=== PATIENT | male | born 1955 | race Caucasian/White ===

== ENCOUNTER 2022-11-01 07:35 | Observation (INO) ==
--- NOTE | 2022-10-05 09:41 | PAT Medication Instructions ---
Medication Instructions Date of Service October 05, 2022 Home Medications benazepril 10 mg tablet 10 mg PO HS cyclobenzaprine 10 mg tablet 10 mg PO HS escitalopram oxalate 10 mg tablet (Lexapro) 10 mg PO HS hydrocodone 5 mg-acetaminophen 325 mg tablet 1 tab PO Q8H PRN meloxicam 7.5 mg tablet 7.5 mg PO HS ASK your surgeon for instructions meloxicam 7.5 mg tablet 7.5 mg PO HS Take morning of surgery With a small sip of water, OTHERWISE NOTHING TO EAT OR DRINK AFTER MIDNIGHT: hydrocodone 5 mg-acetaminophen 325 mg tablet 1 tab PO Q8H PRN(if needed) Take evening before surgery benazepril 10 mg tablet 10 mg PO HS cyclobenzaprine 10 mg tablet 10 mg PO HS escitalopram oxalate 10 mg tablet (Lexapro) 10 mg PO HS hydrocodone 5 mg-acetaminophen 325 mg tablet 1 tab PO Q8H PRN(if needed) Other Notes If you have any questions please call us at [phone] or [phone] or [phone] or [phone]
--- NOTE | 2022-10-12 11:00 | Anesthesiology Consultation ---
Date of Service October 12, 2022 Assessment & Plan (1) Encounter for pre-operative examination: Chart Review Chart Review: Acceptable Risk for Surgery (pending PCP clearance and response to anemia ) and Patient seen in Pre Admission Testing - Awaiting PCP clearance appt 10/18/22 (please send optimization form re: anemia as well as preop testing) Pt currently scheduled as 23 hours observation. If surgeon decides to change patient to [facility], patient would be acceptable risk for TSA, pending patient is motivated, has good support and surgeon's office completes [facility] preop requirements. Per PAT appt on 10/12/22, patient denies any recent travel or large group activities. Pt is vaccinated for Covid. Will leave to surgeon's discretion if preop Covid testing needed. Educated on importance of using Covid precautions one week prior to surgery Teaching & Discussion Pre-Anesthesia Teaching/Discussion Notes: Instructed NPO after midnight before surgery,except medications with 15 cc of water. Medication instructions provided according to the PAT guidelines. History Surgery Operation Date: 11/01/22 07:15 Proposed Procedures p Right Reverse Total Shoulder Arthroplasty - Dash Swanson MD Height/Weight Height: 5 ft 9 in Weight: 74.8 kg Allergies Allergy/AdvReac Type Severity Reaction Status Date / Time No Known Allergies Allergy Verified 10/05/22 08:32 Medications Home Medications Medication Instructions Recorded Confirmed Last Taken benazepril 10 mg tablet 10 mg PO HS 10/05/22 10/05/22 Unknown cyclobenzaprine 10 mg tablet 10 mg PO HS 10/05/22 10/05/22 Unknown escitalopram oxalate 10 mg tablet 10 mg PO HS 10/05/22 10/05/22 Unknown (Lexapro) hydrocodone 5 mg-acetaminophen 325 1 tab PO Q8H PRN Pain 10/05/22 10/05/22 Unknown mg tablet meloxicam 7.5 mg tablet 7.5 mg PO HS 10/05/22 10/05/22 Unknown Past Medical History Medical History Chronic back pain Depression History of COVID-2021--mild symptoms, no symptoms now History of kidney stones No recent issues Hypertension Melanoma s/p excision left thumb (partial ambutation) DIMITRIOS (obstructive sleep apnea) Cannot tolerate device Osteoarthritis Scoliosis Exercise / Class Metabolic Activity II 4-5 Yardwork/Stairs/Walk up hill (one flight of stairs- no chest pain or SOB ) Past Family History Family History Other No family history of adverse response to anesthesia Past Surgical History Surgical History 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 History of colonoscopy History of hernia surgery x2 History of incision and drainage left knee History of repair of right rotator cuff x4 History of surgery per pt had a spider bite on middle finger on left hand and had to have surgery History of toe surgery left foot History of tooth extraction S/P cystoscopy with ureteral stent placement Past Anesthesia History No Hx of Anesthesia Complications and No Family Hx of Anesthesia Complications History of PONV No Hx of PONV and No Hx of Motion Sickness Social History Smoking Status: Never smoker Do You Dip or Chew Tobacco: No Hx Alcohol Use: Yes alcohol intake frequency: holidays/special occasions only Hx Substance Use: No substance use type: does not use Review of Systems Patient denies chest pain, shortness of breath, dyspnea on exertion, reflux, cough, wheezing, palpitations. No hx of seizures, stroke, CA. No hx of blood clots or blood transfusions Physical Exam Vital Signs VITALS BP 155/79 P 75 TEMP 98.2 SP02 97% RESP 16 Constitutional no acute distress ENMT Mouth: no TMJ clicking Thyromental Distance: > or= 3.5 Finger Breadths (4.0) Mallampati Class: II Neck neck extension not limited Respiratory normal respiratory effort; no respiratory distress Auscultation: lungs clear to auscultation bilaterally; no wheezes Cardiovascular Rate/Rhythm: regular rate and regular rhythm Heart Sounds: no murmur Vessels: no carotid bruit Musculoskeletal Spine: no pain with cervical ROM Extremities: extremities normal to inspection Psychiatric Orientation: alert Lab Results Anesthesia Preop Results Results Anesthesia Widget: WBC 6.19 K/ul (4.8-10.8) 10/12/22 Hgb 11.9 g/dl (14.0-18.0) L 10/12/22 Hct 35.9 % (42.0-52.0) L 10/12/22 Plt 248 K/uL (130-400) 10/12/22 Na 136 mmol/L (136-145) 10/12/22 K 4.9 mmol/L (3.5-5.1) 10/12/22 Cl 106 mmol/L (98-107) 10/12/22 CO2 25 mmol/L (21-32) 10/12/22 BUN 20 mg/dl (6-23) 10/12/22 Creat 0.83 mg/dl (0.6-1.4) 10/12/22 Glucose Level 96 mg/dl (70-99(Fasting)) 10/12/22 PT 10.4 Seconds (9.0-12.0) 10/12/22 PTT 26.5 Seconds (21.0-31.0) 10/12/22 INR 0.9 (0.9-1.1) 10/12/22 Urine Color Yellow 10/12/22 Urine Appearance Clear (Clear) 10/12/22 Urine pH 6.0 (4.5-7.5) 10/12/22 Urine Specific [place] 1.017 (1.000-1.030) 10/12/22 Urine Protein Negative (Negative) 10/12/22 Urine Glucose (UA) Negative (Negative) 10/12/22 Urine Ketones Negative (Negative) 10/12/22 Urine Blood Negative (Negative) 10/12/22 Urine Nitrite Negative (Negative) 10/12/22 Urine Bilirubin Negative (Negative) 10/12/22 Urine Urobilinogen Negative (Negative) 10/12/22 Urine Leukocyte Esterase Negative (Negative) 10/12/22 Blood Type O Positive 10/12/22 Antibody Screen NEGATIVE 10/12/22 Testing Laboratory Results Mild anemia- preop testing faxed to PCP office for upcoming clearance appt Electrocardiogram Date: 10/12/22 Findings: + NSR @ (70bpm) Possible left atrial enlargement Incomplete RBBB When compared to EKG from October 28, 2019- no significant change was found Chest X-Ray Date: 10/12/22 FINDINGS: PA and lateral chest radiographs are obtained. No prior studies are available for comparison at the time of dictation. The cardiomediastinal silhouette is top normal for projection. There is bibasilar scarring/atelectasis. No airspace consolidation or pleural effusion is identified. There is no pneumothorax. The skeletal structures are osteopenic. The bony thorax appears intact. Degenerative change and scoliosis is seen in the spine. IMPRESSION: No active disease in the chest. COVID-19 Risk Screen Screening Information COVID-19 Screen Date: 10/12/22 Exposure 21 Days Family/Household +COVID Last 21 Days: No Exposure 10 Days Any COVID Exposure Last 10 Days: No Symptoms Last 10 Days Experienced COVID Sx Last 10 Days: No + COVID 0-90 Days COVID + in Last 0-90 Days: No Risk Plan COVID Risk Plan: No Risk Identified Patient Education COVID Preop Screening Education Complete: Yes
--- NOTE | 2022-10-31 08:41 | History & Physical Report ---
Date of Service October 31, 2022 Assessment & Plan (1) Rotator cuff arthropathy of right shoulder: Plan: Treatment options discussed with patient. He has failed conservative measures. He would like to proceed with surgical intervention. Risks, benefits and alternatives to surgery including but not limited to infection, DVT, pain, stiffness, need for revision surgery, damage to blood vessels, damage to nerves, PE, , were discussed with the patient and they wish to proceed. Plan on right reverse total shoulder arthroplasty scheduled for [facility] on 11/01/[address] Swanson. All questions answered. Patient will follow up post op. History of Present Illness Chief Complaint: Right shoulder pain Primary Care Provider: Corwin Martinez 67yo male with no significant PMHx presents with ongoing right shoulder pain. He has failed conservative measures. Pain interfering with his daily activity. He would like to proceed with surgical intervention. Has had prior rotator cuff surgery. Patient denies headaches, sweats, fevers, chills, double vision, blurred vision, cough, sore throat, dysphagia, chest pain, sob, wheezing, n/v/d/c, numbness, tingling, fatigue, urinary symptoms, mood disorders. ROS positive for right shoulder pain and stiffness. Allergies Allergy/AdvReac Type Severity Reaction Status Date / Time No Known Allergies Allergy Verified 10/05/22 08:32 Home Medications Medication Instructions Recorded Confirmed Type benazepril 10 mg tablet 10 mg PO HS 10/05/22 10/05/22 History cyclobenzaprine 10 mg tablet 10 mg PO HS 10/05/22 10/05/22 History escitalopram oxalate 10 mg tablet 10 mg PO HS 10/05/22 10/05/22 History (Lexapro) hydrocodone 5 mg-acetaminophen 325 1 tab PO Q8H PRN Pain 10/05/22 10/05/22 History mg tablet meloxicam 7.5 mg tablet 7.5 mg PO HS 10/05/22 10/05/22 History Past Med/Surg History Medical History Chronic back pain Depression History of COVID-2021--mild symptoms, no symptoms now History of kidney stones No recent issues Hypertension Melanoma s/p excision left thumb (partial ambutation) DIMITRIOS (obstructive sleep apnea) Cannot tolerate device Osteoarthritis Scoliosis Surgical History 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 History of colonoscopy History of hernia surgery x2 History of incision and drainage left knee History of repair of right rotator cuff x4 History of surgery per pt had a spider bite on middle finger on left hand and had to have surgery History of toe surgery left foot History of tooth extraction S/P cystoscopy with ureteral stent placement Family History Other No family history of adverse response to anesthesia Social History Smoking Status: Never smoker Second Hand Exposure: No; Do You Dip or Chew Tobacco: No; Tobacco Cessation Education Requested by Patient: No Hx Alcohol Use: Yes Hx Substance Use: No Preferred Language: Palauan Communication Ability: Effective 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 Beliefs That Will Affect Care: None Current Living Situation: Spouse Other Information That Helps Us Care for You: No Feels Safe at Home: Yes Safety Concerns: Feels Safe At This Time Assistive Devices: None Review of Systems All systems reviewed & are unremarkable except as noted in HPI & below Physical Exam Constitutional: well developed and well nourished; no acute distress Eyes: PERRL, conjunctivae normal, anicteric sclerae ENMT: external ear and nose normal, oropharynx normal Neck: trachea midline, no thyromegaly Respiratory: normal respiratory effort, lungs clear to auscultation Cardiovascular: RRR, no murmur, no edema Musculoskeletal: Right shoulder: crepitation present. Positive impingement signs. FF to 40 degrees, abduction to 40 degrees, ER to 90 degrees. Strength decreased with 3+/5 ER, 5-/5 IR, 2+/5 abduction and FF. Skin: no rashes, warm and dry Neurologic: patellar DTR's 2+ bilat, sensation intact Psychiatric: A+Ox3, euthymic affect Results & Data Diagnostic Findings Right shoulder radiographs demonstrate proximal migration of humeral head. 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 Rotator cuff arthropathy. MRI demonstrates failure of rotator cuff repair with retraction.
[~2022-11-01 07:35] MED LIST: ACETAMINOPHEN 500 MG TAB PO SCH; BUPIVACAINE 0.5 % 5 MG/1 ML PF 10ML VIAL ONE; CeleBREX 200 MG CAP PO SCH; FAMOTIDINE 20 MG TAB PO SCH; GABAPENTIN 300 MG CAP PO SCH; LR 15ML/HR IV SCH; METOCLOPRAMIDE HCL 10 MG TABLET PO SCH; TRANEXAMIC ACID 1,000 MG **IV Intra-op IV SCH; TRANEXAMIC ACID 1,000 MG **IV Pre-op IV SCH; ceFAZolin 2000MG 2,000 MG/15 ML SYR IV SCH; dexAMETHasone 4 MG TAB PO SCH
--- NOTE | 2022-11-01 07:43 | History & Physical Bridge Note ---
Date of Service November 01, 2022 History & Physical Bridge Note I have examined the patient, reviewed the History & Physical and in the interval since the performance of the History & Physical I have noted the following changes of clinical significance: no changes noted
[2022-11-01] MEDS ORDERED: LIDOCAINE 2% 2 ML VIAL/AMP(20MG/ML) INFIL ONE (07:45)
[2022-11-01] MEDS ORDERED: PROPOFOL IV EMULSION 10 MG/ML 20 ML VIAL IV ONE (07:45)
[2022-11-01] MEDS ORDERED: ROCURONIUM BROMIDE 10 MG/ML 5 ML VIAL IV ONE (07:45)
[2022-11-01] MEDS ORDERED: ONDANSETRON INJ 2 MG/ML 2 ML VIAL ONE (07:45)
[2022-11-01] MEDS ORDERED: DEXAMETHASONE SOD INJ 4 MG/ML VIAL ONE (07:45)
[2022-11-01] MEDS ORDERED: fentaNYL citrate PF 100 MCG/2 ML VIAL ONE (07:46)
[2022-11-01] MEDS ORDERED: MIDAZOLAM HCL 1 MG/ML 2ML VIAL ONE (07:46)
[2022-11-01] MEDS ORDERED: ATROPINE SULFATE 0.1 MG/ML 10ML SYR IV PRN (08:25)
[2022-11-01] MEDS ORDERED: ONDANSETRON INJ 2 MG/ML 2 ML VIAL IV PRN ×2 (08:25→14:34)
[2022-11-01] MEDS ORDERED: fentaNYL citrate PF 100 MCG/2 ML VIAL IV PRN (08:25)
[2022-11-01] MEDS ORDERED: KETOROLAC TROMETHAMINE 15 MG/ML VIAL IV PRN (08:29)
[2022-11-01] MEDS ORDERED: ePHEDrine sulfate 50 MG/ML SYR ONE (10:01)
[2022-11-01] MEDS ORDERED: PHENYLEPHRINE 100MCG/ML 5ML SYR ONE (12:00)
[2022-11-01] MEDS ORDERED: NEOSTIGMINE METHYLSULFATE 1 MG/ML 10ML VIAL ONE (12:24)
[2022-11-01] MEDS ORDERED: GLYCOPYRROLATE 0.2 MG/ML VIAL ONE (12:24)
--- NOTE | 2022-11-01 12:44 | Operative Report ---
Post Operative Report Pre & Post Diagnosis Operation Date: 11/01/22 09:25 Pre-Op Diagnosis: Right Shoulder Rotator cuff arthropathy failed rotator cuff repair Post-Op Diagnosis: Right Shoulder rotator cuff arthropathy failed rotator cuff repair, biceps tendinopathy, loose body biceps tendon sheath with tenosynovitis I identified the patient and participated in the time-out.: Yes Procedure Operation Date: 11/01/22 09:25 Actual Procedures p Right Reverse Total Shoulder Arthroplasty(Right), biceps tenodesis, biceps tendon tenosynovectomy with removal loose body, Excision hardware( suture anchors) - Dash Swanson MD Surgeon Dash Swanson MD Item Processing Clerk Forrest MOYER Estimated Blood Loss 50 Findings Consistent with Post-Op Diagnosis Specimens humeral head Drains 2 Hemovac Anesthesia Type General Regional Complications none Disposition Disposition: Recovery Room Indications 67-year-old male with failed rotator cuff repair right shoulder chronic weakness and pain and rotator cuff arthropathy with pseudo paralytic shoulder inability to raise arm overhead but has functional deltoid when he posts his arm overhead. Description of Procedure The patient was taken to the operating room and anesthetized under regional block and general anesthetic. The patient was positioned on the operating table in a 30 beach chair position with a towel roll under the medial border of the Right scapula. The arm was draped free to be able to manipulate the shoulder as needed. The right upper extremity was prepped and draped in usual sterile fashion. Exam demonstrated good passive range of motion with 180 degrees passive flexion and 90 degrees of external rotation in the abducted position. He had a chronic deformity of his pectoralis muscle and old scar along the pectoralis muscle Right chest wall area. An anterior deltopectoral approach was performed. A longitudinal incision was made in the deltopectoral interval. The skin was incised sharply. Subcutaneous flaps were elevated off the fascia. The cephalic vein was absent. The deltopectoral interval was bluntly dissected down to the clavipectoral fascia and conjoined tendon. The clavipectoral fascia was scarred and there was scarred bursal tissue over the rotator cuff from prior surgery. There were multiple vessels that required being tied off with silk ties and divided. The clavipectoral fascia was divided at the lateral margin of the conjoined tendon and extended up to the CA ligament Which was released for exposure. The following findings were noted: there was partial tearing of the upper and inner aspect of the subscapularis tendon. The biceps tendon sheath had large area with synovitis with a loose body within it that was removed. The proximal biceps tendon was widened with tendinopathy intra-articularly. The superior rotator cuff was torn with failed rotator cuff repair with some thin scar tissue and stretched out suture material from the previous anchors which were still intact. The suture material was removed and all scarred bursa was removed. . The upper centimeter of the pectoralis was released for inferior exposure. A self-retaining retractor was placed. The biceps tendon was tenodesed to the pectoralis tendon with #2 FiberWire. The proximal biceps was resected. The subscapular muscle fibers were split longitudinally at the level of the circumflex vessels. The circumflex vessels were identified and tied off with silk ties and divided laterally. A Kitner elevator was used to free up the in ferior fibers of the subscapularis off of the capsule. The axillary nerve was identified with a tug test and protected with a blunt Maryanne retractor between the nerve and the capsule. The subscapularis tendon was then taken down off of the lesser tuberosity subperiosteally, a Vicryl traction suture was placed and a subperiosteal dissection was performed along the neck of the humerus as the arm was gradually externally rotated exposing the humeral head. The humeral head findings demonstrated Arthritic changes of the humeral head with inferior osteophytes extending from anterior to posterior. retractors were readjusted and the inferior osteophytes were all resected using an artist chisel. A Mcneil elevator was used to assist in releasing the capsule of the neck of the humerus. The capsule was divided with Dennis scissors down to the glenoid released off the anterior glenoid and the rotator interval was released to meet the capsular release and a 360 release of the subscapularis was accomplished. Some of the scarred torn subscapularis fibers on the inner surface were removed with a sharp scalpel. There was satisfactory amount of thickness and subscapularis tendon for repair at the end of the procedure. A Fukuda retractor was placed into the joint retracting the humeral head posterior. Glenoid findings demonstrated Some arthritic changes of the articular cartilage but still intact articular cartilage on the glenoid and chronic degeneration of the labrum and anterior glenoid spur. The labrum and biceps tendon was resected. an anterior-inferior and posterior inferior capsular release were performed with electrocautery and a Mcneil elevator on bone with the axillary nerve protected inferiorly by the retractor. Attention was then taken to the humeral preparation. The cutting guide was placed into the humeral head. It was positioned at 20 of retroversion. Oscillating saw was used to resect the humeral head giving the cut above the level of the posterior rotator cuff insertion site. the old suture anchors had to be removed using a rongeur as they were impeding the course of placing the stem. 2 peek suture anchors were removed. The humerus was then prepared for the stem. I used the ascend flex stem from [employer]. The sizing broaches were used followed by trial broaches up to a size 6B long which had the appropriate fit and fill. The appropriate sized cut protector was placed. The humerus was then retracted posterior to the glenoid. The glenoid was sized for a 25 mm baseplate. The guide for the baseplate was positioned in a 10 inferior tilt and the central drill hole was made. The reamer for the 25 mm baseplate was used. The central drill was widened for the peg. The aequalis 25 mm baseplate with standard post was impacted into position. The base plate was transfixed with superior and inferior locking screws and anterior and posterior compression screws with stable fixation. The fan reamer was used for the 36 millimeter glenoid sphere. After irrigation the 36 mm glenoid sphere with a +2 inferior offset was impacted onto the baseplate and the security screw was tightened. Attention was taken back to the humerus. The cut protector was removed and the plus or high offset humeral tray trial was assembled to the trial stem rotated appropriately to get bony coverage and then screwed in position. A trial reduction was performed. A +6, 36 reversed trial insert demonstrated good stability and no shuck. The trials were removed. 3 drill holes are made into the harder bone in the bicipital groove area and 3 #5 FiberWire sutures were placed transosseously. The canal was irrigated with saline solution pulsatile lavage. The final component was assembled. The final component was 6B long ascend flex PTC stem assembled to the plus or high offset tray with a +6, 36 mm reversed polyethylene insert. This was then impacted into the humerus with a tight press-fit. It was reduced to the glenoid sphere. Stability was verified. Subscapularis was repaired with the #5 FiberWire sutures using Urban-Mitul suture technique. Lateral row soft tissue repair was performed with #2 FiberWire [id number] sutures. The pectoralis was repaired with #2 FiberWire [id number] sutures reinforcing the biceps tendon tenodesis. The arm was taken through a range of motion which demonstrated 160 degrees forward flexion 115 degrees of abduction 60 degrees external rotation without tension on repair . The implant was stable through the range of motion tested. The wound was copiously irrigated. 2 Hemovac drains were placed. The deltopectoral interval was closed with [id number] #1 Vicryl sutures. The subcutaneous tissues were closed with 2-0 Vicryl sutures. The skin was closed with prakash Sterile dressings were applied and a shoulder immobilizer Forrest MOYER, My physician assistant program director acted as certified surgical first assistant throughout the procedure .He performed functions including patient positioning, arm posit ioning, prepping and draping, soft tissue retraction, instrument management, suture management and performed the subcutaneous and skin closure and will participate in the postoperative care of the patient. I attest to the content of the Intraoperative Record and any orders documented therein. Any exceptions are noted below.
--- NOTE | 2022-11-01 13:04 | XRay Report ---
XR shoulder RT min 2V routine CLINICAL HISTORY: Post shoulder surgery COMPARISON STUDY: None. FINDINGS: 2 views of the right shoulder demonstrate a reverse right total shoulder arthroplasty. The hardware appears intact. No acute fracture or dislocation. Skin prakash and surgical drains are in pl [place]. Soft tissue gas within the right shoulder likely due to the recent postoperative change. Scolios is of the thoracic spine. IMPRESSION: Status post reverse right total shoulder arthroplasty. No evidence for hardware complica tion. ACT 112: Negative or not required by law. Electronically signed by: Pawan Vázquez M.D. 11/01/2022 1:03 PM
--- NOTE | 2022-11-01 13:45 | Anesthesiology Progress Note ---
Date of Service November 01, 2022 Anesthesia Post Procedure Vital Signs Vital Signs: Temp Pulse Resp BP Pulse Ox O2 Del Method O2 Flow Rate 11/01/22 13:30 82 18 120/71 97 Nasal Cannula 2 11/01/22 13:20 36.5 C 73 16 112/68 98 Nasal Cannula 2 11/01/22 13:10 72 18 110/63 96 Room Air 11/01/22 13:00 79 18 120/70 97 Room Air 11/01/22 12:50 79 20 109/68 99 Oxymask 6 11/01/22 12:40 70 16 119/66 100 Oxymask 6 11/01/22 12:37 36.0 C L 77 16 120/74 100 Oxymask 6 11/01/22 07:55 36.9 C 78 20 136/91 97 Room Air Pain Intensity Right Shoulder: Pain Intensity: 1 Transfer of Care Handoff Completed per policy Notes Mental Status: alert / awake / arousable Patient Amnestic to Procedure: Yes Nausea / Vomiting: adequately controlled Pain: adequately controlled Airway Patency, RR, SpO2: stable & adequate BP & HR: stable & adequate Hydration State: stable & adequate Anesthetic Complications: no major complications apparent
[2022-11-01] MEDS ORDERED: diphenhydrAMINE 50 MG/ML VIAL IV PRN (14:34)
[2022-11-01] MEDS ORDERED: METOCLOPRAMIDE HCL INJ 5 MG/ML 2 ML VIAL IV PRN (14:34)
[2022-11-01] MEDS ORDERED: MAGNESIUM HYDROXIDE SUSP 30 ML UDC PO PRN (14:34)
[2022-11-01] MEDS ORDERED: bisacodyL 10 MG SUPP PR PRN (14:34)
[2022-11-01] MEDS ORDERED: NALOXONE HCL 0.4 MG/1 ML VIAL/CARP IV PRN (14:34)
[2022-11-01] MEDS ORDERED: HYDROmorphone INJ 0.5 MG/0.5 ML SYR IV PRN (14:34)
[2022-11-01] MEDS: SODIUM CHLORIDE 0.9% 1000ML 1,000 ML IV SCH (14:53)
[2022-11-01] MEDS: ACETAMINOPHEN 500 MG TAB PO SCH ×2 (15:37→21:32)
[2022-11-01] MEDS: ceFAZolin 2000MG 2,000 MG/15 ML SYR IV SCH (17:51)
[2022-11-01] MEDS ORDERED: ESCITALOPRAM OXALATE 10 MG TAB PO SCH (21:00)
[2022-11-01] MEDS ORDERED: ENALAPRIL MALEATE 10 MG TAB PO SCH (21:00)
[2022-11-01] MEDS ORDERED: SENNA 8.6 MG TAB PO SCH (21:00)
[2022-11-01] MEDS: ASPIRIN 81 MG ECTAB PO SCH (21:31)
[2022-11-01] MEDS: DOCUSATE SODIUM 100 MG CAP PO SCH (21:33)
[2022-11-01] MEDS: oxyCODONE HCL IR 5 MG TAB (IMMEDIATE RELEASE) PO PRN (23:01)
[2022-11-02] MEDS: SODIUM CHLORIDE 0.9% 1000ML 1,000 ML IV SCH (00:56)
[2022-11-02] MEDS: ceFAZolin 2000MG 2,000 MG/15 ML SYR IV SCH (02:45)
[2022-11-02] MEDS: ACETAMINOPHEN 500 MG TAB PO SCH ×2 (05:11→13:41)
[2022-11-02 06:46] LABS: Basophils # (auto) 0.01 K/uL (0-0.2); Basophils % (auto) 0.1 %; Eosinophils # (auto) 0.01 K/uL (0-0.50); Eosinophils % (auto) 0.1 %; Hematocrit (blood only) 28.3 % (42.0-52.0); Hemoglobin 9.4 g/dl (14.0-18.0); Immature Granulocytes # (auto) 0.07 K/uL (0.01-0.20); Immature Granulocytes % (auto) 0.6 %; Lymphocytes # (auto) 1.07 K/uL (1.2-3.4); Lymphocytes % (auto) 9.2 %; Mean Corpuscular Hemoglobin 30.6 pg (25.0-34.0); Mean Corpuscular Hgb Conc 33.2 g/dL (32.0-36.0); Mean Corpuscular Volume 92.2 fL (80.0-100.0); Mean Platelet Volume 9.8 fL (9.4-12.4); Monocytes # (auto) 1.12 K/uL (0.11-0.59); Monocytes % (auto) 9.7 %; Neutrophils # (auto) 9.31 K/uL (1.40-6.50); Neutrophils % (auto) 80.3 %; Platelet Count 209 K/uL (130-400); RDW Coefficient of Variation 12.3 % (11.5-14.5); RDW Standard Deviation 41.2 fL (36.4-46.3); Red Blood Count 3.07 M/uL (4.70-6.10); White Blood Count 11.59 K/ul (4.8-10.8)
[2022-11-02 06:59] LABS: Calcium 7.4 mg/dl (8.6-10.3); Creatinine Clr Calc Pharmacy 75.5 ml/min; Est GFR (African American) 95.6 ml/min; Est GFR (Non-African American) 82.5 ml/min
--- NOTE | 2022-11-02 07:04 | Orthopedic Progress Note ---
Date of Service November 02, 2022 Assessment & Plan (1) Rotator cuff arthropathy of right shoulder: Plan: Postop day 1 status post right reverse total shoulder arthroplasty PT/OT protocols. Nonweightbearing right upper extremity. DVT prophylaxis-aspirin p.o. twice daily, SCDs Pain management as written DC planning-patient is planning for discharge to home. No active PT until seen back in the office. Passive exercises only Admission and Anticipated Discharge Date Admission Date: November 01, 2022 Subjective Postop day 1 Patient sitting up in bed awake and alert. No complaints this morning. Denies any shortness of breath, chest pain, lightheadedness. Pain is controlled. He states that his nerve block is still working well. Physical Exam Physical Exam: Dressings are clean, dry, and intact. Sling is in place. He continues to have fairly active nerve block. He continues to have numbness and the hand and fingers. He is able to flex the fingers at this time but has no active extension and is unable to extend his wrist. Capillary refill is less than 2 seconds. Results & Data Vital Signs (Past 12 Hours) Vital Signs Temp Pulse Resp BP Pulse Ox O2 Del Method 11/02/22 06:11 36.5 C 70 16 131/68 93 Room Air 11/02/22 02:45 36.6 C 73 14 128/74 95 Room Air 11/01/22 23:29 36.8 C 93 H 16 129/67 94 Room Air 11/01/22 19:36 37.0 C 66 16 138/78 96 Room Air Laboratory Results Laboratory Results WBC 11.59 K/ul (4.8-10.8) H 11/02/22 06:09 RBC 3.07 M/uL (4.70-6.10) L 11/02/22 06:09 Hgb 9.4 g/dl (14.0-18.0) L 11/02/22 06:09 Hct 28.3 % (42.0-52.0) L 11/02/22 06:09 MCV 92.2 fL (80.0-100.0) 11/02/22 06:09 MCH 30.6 pg (25.0-34.0) 11/02/22 06:09 MCHC 33.2 g/dL (32.0-36.0) 11/02/22 06:09 RDW Std Deviation 41.2 fL (36.4-46.3) 11/02/22 06:09 RDW Coeff of Peña 12.3 % (11.5-14.5) 11/02/22 06:09 Plt Count 209 K/uL (130-400) 11/02/22 06:09 MPV 9.8 fL (9.4-12.4) 11/02/22 06:09 Immature Gran % (Auto) 0.6 % 11/02/22 06:09 Neut % (Auto) 80.3 % 11/02/22 06:09 Lymph % (Auto) 9.2 % 11/02/22 06:09 [place] % (Auto) 9.7 % 11/02/22 06:09 Eos % (Auto) 0.1 % 11/02/22 06:09 Baso % (Auto) 0.1 % 11/02/22 06:09 Neut # (Auto) 9.31 K/uL (1.40-6.50) H 11/02/22 06:09 Lymph # (Auto) 1.07 K/uL (1.2-3.4) L 11/02/22 06:09 [place] # (Auto) 1.12 K/uL (0.11-0.59) H 11/02/22 06:09 Eos # (Auto) 0.01 K/uL (0-0.50) 11/02/22 06:09 Baso # (Auto) 0.01 K/uL (0-0.2) 11/02/22 06:09 Immature Gran # (Auto) 0.07 K/uL (0.01-0.20) 11/02/22 06:09 Sodium 140 mmol/L (136-145) 11/02/22 06:09 Potassium 4.0 mmol/L (3.5-5.1) 11/02/22 06:09 Chloride 112 mmol/L (98-107) H 11/02/22 06:09 Carbon Dioxide 23 mmol/L (21-32) 11/02/22 06:09 Anion Gap 5 (3-11) 11/02/22 06:09 BUN 19 mg/dl (6-23) 11/02/22 06:09 Creatinine 0.95 mg/dl (0.6-1.4) 11/02/22 06:09 Est Cr Clr Drug Dosing 75.5 ml/min 11/02/22 06:09 Est GFR ( Amer) 95.6 ml/min 11/02/22 06:09 Est GFR (Non-Af Amer) 82.5 ml/min 11/02/22 06:09 BUN/Creatinine Ratio 20.0 (10-20) 11/02/22 06:09 Glucose 132 mg/dl (70-99(Fasting)) H 11/02/22 06:09 Calcium 7.4 mg/dl (8.6-10.3) L 11/02/22 06:09 SARS-CoV-2, RNA, NAAT NEGATIVE (NEGATIVE) 11/01/22 07:47 Impressions Shoulder X-Ray 11/01/22 12:41 XR shoulder RT min 2V routine CLINICAL HISTORY: Post shoulder surgery COMPARISON STUDY: None. FINDINGS: 2 views of the right shoulder demonstrate a reverse right total shoulder arthroplasty. The hardware appears intact. No acute fracture or dislocation. Skin prakash and surgical drains are in place. Soft tissue gas within the right shoulder likely due to the recent postoperative change. Scoliosis of the thoracic spine. IMPRESSION: Status post reverse right total shoulder arthroplasty. No evidence for hardware complication. ACT 112: Negative or not required by law. Electronically signed by: Pawan Vázquez M.D. 11/01/2022 1:03 PM
[2022-11-02] MEDS: DOCUSATE SODIUM 100 MG CAP PO SCH (08:42)
[2022-11-02] MEDS: ASPIRIN 81 MG ECTAB PO SCH (08:42)
[2022-11-02] MEDS ORDERED: MULTIVITAMIN TAB PO SCH (09:00)
--- NOTE | 2022-11-02 10:30 | Hospitalist Consultation ---
Date of Consultation November 02, 2022 Assessment & Plan (1) Rotator cuff arthropathy of right shoulder: Right partial rotator cuff tear S/p reverse shoulder arthroplasty 11/01/2022. Uncomplicated, 50 cc of blood loss, regional block was used At bedside assessment patient is normotensive, saturating 95% on room air No evidence of diaphragmatic paresis; >1000cc on incentive eric Low risk DVT with shoulder surgery. DVT prophylaxis, activity, pain control per primary team Hemoglobin 09/2022 11.9, 9.4 postoperatively. No tachycardia/hypotension. Spotcheck hemoglobin daily. No microcytosis Renal function is normal at baseline and 0.95 on assessment. Okay to resume Benzapril as noted Additional hemoglobin check due to two-point drop obtained, hemoglobin is stable at 9.4 Okay to discharge to outpatient follow-up from a medical standpoint, would obtain CBC in 1 week to ensure stability. Patient does have a history of GERD, recommend PPI x30 days for GI prophylaxis with aspirin twice daily. 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 We are consulted for postoperative medical management Preoperative clearance reviewed, RCRI class I risk Wang is seen at the bedside. He reports he feels well. He does have a history of reflux/GERD, currently has no epigastric tenderness. His drain has red output. He has no lightheadedness, dizziness, chest pain, chest pressure, shortness of breath. He reports he has no pain in his shoulder at time of assessment. He reports he feels well with no other acute concerns at time of consultation Allergies Allergy/AdvReac Type Severity Reaction Status Date / Time No Known Allergies Allergy Verified 11/01/22 07:58 Home Medications Medication Instructions Recorded Confirmed Type benazepril 10 mg tablet 10 mg PO HS 10/05/22 11/01/22 History cyclobenzaprine 10 mg tablet 10 mg PO HS 10/05/22 11/01/22 History escitalopram oxalate 10 mg tablet 10 mg PO HS 10/05/22 11/01/22 History (Lexapro) meloxicam 7.5 mg tablet 7.5 mg PO HS 10/05/22 11/01/22 History acetaminophen 500 mg tablet 1,000 mg PO Q8 14 days #84 tabs 11/01/22 Rx (Tylenol Extra Strength) aspirin 81 mg tablet,delayed 81 mg PO BID 30 days #60 tabs 11/01/22 Rx release cefadroxil 500 mg capsule 500 mg PO BID #14 caps 11/01/22 Rx oxycodone 5 mg tablet 5 mg PO Q4H PRN pain #30 tabs 11/02/22 Rx pantoprazole 40 mg tablet,delayed 40 mg PO DAILY 4 weeks #28 tabs 11/02/22 Rx release polyethylene glycol 3350 17 gram 17 g PO DAILY PRN constipation #5 11/02/22 Rx oral powder packet (Miralax) ea Patient History Medical History (Updated 11/02/22 @ 16:39 by Leandro Canales MD) Chronic back pain Depression History of COVID-2021--mild symptoms, no symptoms now History of kidney stones No recent issues Hypertension Melanoma s/p excision left thumb (partial ambutation) DIMITRIOS (obstructive sleep apnea) Cannot tolerate device Osteoarthritis Scoliosis Surgical History 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 History of colonoscopy History of hernia surgery x2 History of incision and drainage left knee History of repair of right rotator cuff x4 History of surgery per pt had a spider bite on middle finger on left hand and had to have surgery History of toe surgery left foot History of tooth extraction S/P cystoscopy with ureteral stent placement Family History Other No family history of adverse response to anesthesia Social History Smoking Status: Never smoker Second Hand Exposure: No; Do You Dip or Chew Tobacco: No; Hx Alcohol Use: Yes Hx Substance Use: No Preferred Language: Mongolian Communication Ability: Effective Platform Loader Required: No Beliefs That Will Affect Care: None Current Living Situation: Spouse Feels Safe at Home: Yes Assistive Devices: Cane and Walker Review of Systems Review of Systems: All systems reviewed & are unremarkable except as noted in Subjective Physical Exam Physical Exam: General: A&Ox3. NAD. Cooperative. HEENT: Atraumatic, normocephalic. Vision/hearing grossly Pulm: CTAB A&P. -wheezes, -rales, -rhonchi. Symmetrical chest rise. No increased work of breathing. No respiratory distress. Patient is able to easily tack puller 1000 cc on incentive spirometry. Cardiac: RRR, -mrg. Radial pulses intact and symmetrical. Abdominal: Nontender, nondistended, soft. BS present. Extremities: Right arm in sling, sensation intact in fingertips bilateral. Electrode Cleaner strength 5/5 bilaterally. Radial pulse intact Results & Data Results & Data Vital Signs (Past 12 Hours) Vital Signs Temp Pulse Resp BP Pulse Ox O2 Del Method 11/02/22 10:11 36.8 C 78 16 138/64 95 Room Air 11/02/22 06:11 36.5 C 70 16 131/68 93 Room Air 11/02/22 02:45 36.6 C 73 14 128/74 95 Room Air 11/01/22 23:29 36.8 C 93 H 16 129/67 94 Room Air PG Care Time/CCT Total # of Minutes Spent Total Time Spent with Patient: Total time spent is greater than 50% in coordination of care (as documented) at patient's floor/unit and/or counseling patient: Coding Level of Care Code 78054 IN/OBS CONSULT LVL 3,45M Diagnoses Rotator cuff arthropathy of right shoulder M12.811
[2022-11-02] MEDS: oxyCODONE HCL IR 5 MG TAB (IMMEDIATE RELEASE) PO PRN ×2 (12:07→16:21)
[2022-11-02 14:54] LABS: Hematocrit (blood only) 28.2 % (42.0-52.0); Hemoglobin 9.4 g/dl (14.0-18.0)
[2022-11-02] MEDS ORDERED: ENALAPRIL MALEATE 10 MG TAB PO SCH (21:00)
--- NOTE | 2022-11-03 12:13 | Discharge Summary ---
Date of Service November 03, 2022 Admission HPI Per Admitting Provider 67yo male with no significant PMHx presents with ongoing right shoulder pain. He has failed conservative measures. Pain interfering with his daily activity. He would like to proceed with surgical intervention. Has had prior rotator cuff surgery. Patient denies headaches, sweats, fevers, chills, double vision, blurred vision, cough, sore throat, dysphagia, chest pain, sob, wheezing, n/v/d/c, numbness, tingling, fatigue, urinary symptoms, mood disorders. ROS positive for right shoulder pain and stiffness. Admission Exam Per Admitting Provider Physical Exam Constitutional: well developed and well nourished; no acute distress Eyes: PERRL, conjunctivae normal, anicteric sclerae ENMT: external ear and nose normal, oropharynx normal Neck: trachea midline, no thyromegaly Respiratory: normal respiratory effort, lungs clear to auscultation Cardiovascular: RRR, no murmur, no edema Musculoskeletal: Right shoulder: crepitation present. Positive impingement signs. FF to 40 degrees, abduction to 40 degrees, ER to 90 degrees. Strength decreased with 3+/5 ER, 5-/5 IR, 2+/5 abduction and FF. Skin: no rashes, warm and dry Neurologic: patellar DTR's 2+ bilat, sensation intact Psychiatric: A+Ox3, euthymic affect Principal Diagnosis right shoulder osteoarthritis Discharge Data Allergies Allergy/AdvReac Type Severity Reaction Status Date / Time No Known Allergies Allergy Verified 11/01/22 07:58 Consultations 10/30/22 12:12 Consult Hospitalist Routine Procedures Performed Operation Date: 11/01/22 09:25 Actual Procedures p Right Reverse Total Shoulder Arthroplasty(Right) - Dash Swanson MD Ordered Studies 11/01/22 05:00 US - OR guided needle placemen Routine Hospital Course (1) Rotator cuff arthropathy of right shoulder: Patient:BREANNE PRICE Admit Date:11/01/22 MR#:[id number] Att Phy:Dash Swanson M.D. Acct ID:[id number] Mariela Phy:Corwni Martinez M.D. Date:1955 Fam Phy: Age:67 Location:3E Sex:M Room/Bed:E309-1 cc: ~ *NOTICE TO RECEIVING CONSTITUTION PARTY/AGENCY This information is strictly Confidential and protected under [place] law. [place] law prohibits you from making any further disclosure of this information unless further disclosure is expressly permitted by the written consent of the person to whom it pertains or is authorized by law. A general authorization for the release of medical or other information is not sufficient for this purpose. Hospital accepts no res ponsibility if the information is made available to any other person, INCLUDING THE PATIENT. Date of Service November 02, 2022 Assessment & Plan (1) Rotator cuff arthropathy of right shoulder: Plan: Postop day 1 status post right reverse total shoulder arthroplasty PT/OT protocols. Nonweightbearing right upper extremity. DVT prophylaxis-aspirin p.o. twice daily, SCDs Pain management as written DC planning-patient is planning for discharge to home. No active PT until seen back in the office. Passive exercises only Admission and Anticipated Discharge Date Admission Date: November 01, 2022 Subjective Postop day 1 Patient sitting up in bed awake and alert. No complaints this morning. Denies any shortness of breath, chest pain, lightheadedness. Pain is controlled. He states that his nerve block is still working well. Physical Exam Physical Exam: Dressings are clean, dry, and intact. Sling is in place. He continues to have fairly active nerve block. He continues to have numbness and the hand and fingers. He is able to flex the fingers at this time but has no active extension and is unable to extend his wrist. Capillary refill is less than 2 seconds. Results & Data Vital Signs (Past 12 Hours) Vital Signs Temp Pulse Resp BP Pulse Ox O2 Del Method 11/02/22 06:11 36.5 C 70 16 131/68 93 Room Air 11/02/22 02:45 36.6 C 73 14 128/74 95 Room Air 11/01/22 23:29 36.8 C 93 H 16 129/67 94 Room Air 11/01/22 19:36 37.0 C 66 16 138/78 96 Room Air Laboratory Results Laboratory Results WBC 11.59 K/ul (4.8-10.8) H 11/02/22 06:09 RBC 3.07 M/uL (4.70-6.10) L 11/02/22 06:09 Hgb 9.4 g/dl (14.0-18.0) L 11/02/22 06:09 Hct 28.3 % (42.0-52.0) L 11/02/22 06:09 MCV 92.2 fL (80.0-100.0) 11/02/22 06:09 MCH 30.6 pg (25.0-34.0) 11/02/22 06:09 MCHC 33.2 g/dL (32.0-36.0) 11/02/22 06:09 RDW Std Deviation 41.2 fL (36.4-46.3) 11/02/22 06:09 RDW Coeff of Peña 12.3 % (11.5-14.5) 11/02/22 06:09 Plt Count 209 K/uL (130-400) 11/02/22 06:09 MPV 9.8 fL (9.4-12.4) 11/02/22 06:09 Immature Gran % (Auto) 0.6 % 11/02/22 06:09 Neut % (Auto) 80.3 % 11/02/22 06:09 Lymph % (Auto) 9.2 % 11/02/22 06:09 [place] % (Auto) 9.7 % 11/02/22 06:09 Eos % (Auto) 0.1 % 11/02/22 06:09 Baso % (Auto) 0.1 % 11/02/22 06:09 Neut # (Auto) 9.31 K/uL (1.40-6.50) H 11/02/22 06:09 Lymph # (Auto) 1.07 K/uL (1.2-3.4) L 11/02/22 06:09 [place] # (Auto) 1.12 K/uL (0.11-0.59) H 11/02/22 06:09 Eos # (Auto) 0.01 K/uL (0-0.50) 11/02/22 06:09 Baso # (Auto) 0.01 K/uL (0-0.2) 11/02/22 06:09 Immature Gran # (Auto) 0.07 K/uL (0.01-0.20) 11/02/22 06:09 Sodium 140 mmol/L (136-145) 11/02/22 06:09 Potassium 4.0 mmol/L (3.5-5.1) 11/02/22 06:09 Chloride 112 mmol/L (98-107) H 11/02/22 06:09 Carbon Dioxide 23 mmol/L (21-32) 11/02/22 06:09 Anion Gap 5 (3-11) 11/02/22 06:09 BUN 19 mg/dl (6-23) 11/02/22 06:09 Creatinine 0.95 mg/dl (0.6-1.4) 11/02/22 06:09 Est Cr Clr Drug Dosing 75.5 ml/min 11/02/22 06:09 Est GFR ( Amer) 95.6 ml/min 11/02/22 06:09 Est GFR (Non-Af Amer) 82.5 ml/min 11/02/22 06:09 BUN/Creatinine Ratio 20.0 (10-20) 11/02/22 06:09 Glucose 132 mg/dl (70-99(Fasting)) H 11/02/22 06:09 Calcium 7.4 mg/dl (8.6-10.3) L 11/02/22 06:09 SARS-CoV-2, RNA, NAAT NEGATIVE (NEGATIVE) 11/01/22 07:47 Impressions Shoulder X-Ray 11/01/22 12:41 XR shoulder RT min 2V routine CLINICAL HISTORY: Post shoulder surgery COMPARISON STUDY: None. FINDINGS: 2 views of the right shoulder demonstrate a reverse right total shoulder arthroplasty. The hardware appears intact. No acute fracture or dislocation. Skin prakash and surgical drains are in place. Soft tissue gas within the right shoulder likely due to the recent postoperative change. Scoliosis of the thoracic spine. IMPRESSION: Status post reverse right total shoulder arthroplasty. No evidence for hardware complication. ACT 112: Negative or not required by law. Electronically signed by: Pawan Vázquez M.D. 11/01/2022 1:03 PM Total Time Total Time Spent Total Time Spent (In Minutes): 5 Discharge Plan Discharge Items Patient Disposition: Home - Self-Care Reason For Visit: Right Shoulder Primary Osteoarthritis Discharge Diagnosis: Right shoulder rotator cuff arthropathy Activity: Per Instructions section Non-emergency contact: Surgeon Call non-emergency contact if: you have any medication questions, your pain is not controlled, your temperature is above 101.5, your wound has increased redness and your wound has increased drainage Follow-up/Referrals: Dash Swanson MD [Surgeon] - (Follow up with Dr. Swanson or his PA in 2 weeks from the day of surgery for your first post operative visit. ) Corwin Martinez M.D. [Primary Care Provider] - Diet: Regular Addtl Attending Provider Instructions: ACTIVITY RECOMMENDATIONS: SELF CARE INSTRUCTIONS AFTER TOTAL SHOULDER ARTHROPLASTY REVERSE A. You may do daily exercises as taught in physical therapy while in hospital. No lifting with the operative arm. B. You are to wear your sling/immobilizer at all times EXCEPT when performing your daily exercises and for hygiene purposes. C. You may perform dry, daily dressing changes. Please keep your incision covered. You may shower 48 hours after surgery. Do not apply soap or any ointment/lotions directly over incision. Do not soak incision in bath tub/swimming pool. D. You may use ice as needed to operative shoulder. SPECIAL CARE INSTRUCTIONS: VERY IMPORTANT TO READ AND REVIEW A. There are a few signs you need to watch for after you are home. Call [facility] at [phone] if you experience any of the followin. Increased severe shoulder pain. Some pain is expected especially when you exercise. 2. Increased swelling in you shoulder or arm; pain or swelling in either upper extremity. 3. Any fluid drainage from the incision. 4. Shortness of breath or chest pain. B. Please call [facility] at [phone] if you have any questions or concerns about your operation or recovery. C. Call your physician if: 1. Temperature is greater than 101 degrees (F). 2. Pain is not relieved by prescribed pain medications. 3. Increase drainage or redness from incision. 4. Unanswered questions or concerns. FOLLOW UP VISIT: Please call [facility] at [phone] to schedule a follow up appointment with Dr. Swanson or his PA in 12-14 days from your surgery date. Pending Studies at Discharge: No Stand-Alone Forms: [facility] Medications and DC Order Prescriptions: New aspirin 81 mg Tablet,Delayed Release (Dr/Ec) 81 mg PO BID 30 Days Qty: 60 0RF acetaminophen [Tylenol Extra Strength] 500 mg Tablet 1,000 mg PO Q8 14 Days Qty: 84 0RF cefadroxil 500 mg capsule 500 mg PO BID Qty: 14 0RF polyethylene glycol 3350 [Miralax] 17 gram powder in packet 17 g PO DAILY PRN (Reason: constipation) Qty: 5 0RF oxycodone 5 mg tablet 5 mg PO Q4H MDD 6 PRN (Reason: pain) Qty: 30 0RF pantoprazole 40 mg tablet,delayed release (DR/EC) 40 mg PO DAILY 28 Days Qty: 28 0RF Continued cyclobenzaprine 10 mg Tablet 10 mg PO HS meloxicam 7.5 mg Tablet 7.5 mg PO HS benazepril 10 mg Tablet 10 mg PO HS escitalopram oxalate [Lexapro] 10 mg Tablet 10 mg PO HS Discontinued hydrocodone-acetaminophen 5-325 mg Tablet 1 tab PO Q8H PRN (Reason: Pain) Discharge Orders: Discharge Order (Routine); Ordered 11/02/22 Ordered By: Forrest Becerril/Other Patient Handouts: Shoulder Replace Home Recovery Admission Data Admit Date/Time: 11/01/22 12:41 Attending Provider: Dash Swanson Admit Provider: Dash Swanson Primary Care Provider: Corwin Martinez Other Providers: Gold Solo Paul Other Interventions: Discharge Summary Assessment (RN) Last Done: 11/02/22 16:39
== END 2022-11-02 17:19 | disposition home or self-care (01) ==
LOC: ASU 07:35 → 3E 07:35